=== PATIENT | male | born 1955 | race Two or more races ===

== ENCOUNTER 2017-09-16 19:16 | Emergency (ER) | payer BC ==
[~2017-09-16] VITALS: Ht 177.8 cm; Wt 81.6 kg
== END 2017-09-16 22:06 | disposition home or self-care (01) ==
LOC: ER 19:16
DX: T17.298A Other foreign object in pharynx causing other injury, initial encounter (principal); W45.8XXA Other foreign body or object entering through skin, initial encounter; Y93.89 Activity, other specified; Y92.89 Other specified places as the place of occurrence of the external cause; Y99.8 Other external cause status